=== PATIENT | female | born 1945 | race Caucasian/White ===

== ENCOUNTER 2017-09-14 17:05 | Inpatient (IN) | payer OTHER ==
[~2017-09-14] VITALS: Ht 170.2 cm; Wt 74.3 kg
[~2017-09-14 17:05] MED LIST: AMOXICILLIN500 M1 PO; ASPIR 8181 M1 PO; DIOVAN HCT 80-1 EACH PO; PRILOSEC20 MG PO
[2017-09-14 17:55] LABS: HEMATOCRIT 43.9 % (36.0-46.0); MCHC 33.7 G/DL (30.0-36.0); MCV 94.8 FL (83-99); PLATELET COUNT 314 K/uL (156-360); RBC DIS.WIDTH-CV 12.1 % (11.8-14.6); RBC DIS.WIDTH-SD 42.2 % (39-53); RED BLOOD COUNT 4.63 M/uL (3.80-5.20); WHITE BLOOD COUNT 13.1 K/uL (4.1-10.2)
[2017-09-14 18:08] LABS: CHLORIDE 107 mEq/L (99-109); SODIUM 142 mEq/L (136-147)
[2017-09-14 18:11] LABS: GLUCOSE 112 mg/dL (70-99)
[2017-09-14 18:14] LABS: ALKALINE PHOSPHATASE 236 IU/L (3-129); ANION GAP 9 MEQ/L (2-14); GFR ESTIMATE (CALCULATED) > 59 mL/min/; TOTAL BILIRUBIN 0.5 mg/dL (0.0-1.0)
[2017-09-14 18:15] LABS: UREA NITROGEN (BUN) 13 mg/dL (9-23)
[2017-09-14 18:43] LABS: LIPASE 27 U/L (1.0-51.0)
[2017-09-14 18:43] LABS: ADD MIUA? YES; BILIRUBIN NEGATIVE; BLOOD SMALL; COLOR YELLOW ((YELLOW)); GLUCOSE (STRIP) NEGATIVE; KETONES 20; LEUKOCYTES SMALL; NITRITE NEGATIVE; PROTEIN (STRIP) NEGATIVE; SPECIFIC GRAVITY 1.015 (1.000-1.030); UROBILINOGEN 0.2 MG/DL (0.2-1.0)
[2017-09-14 18:57] LABS: BACTERIA NONE SEEN /HPF; EPITHELIAL CELLS RARE /HPF; MUCUS TRACE /LPF; UCUL ADDED? YES
[2017-09-14 19:02] LABS: TROP-I INTERPRETATION NEGATIVE; TROPONIN-I < 0.01 ng/mL (0.0-0.30)
[2017-09-14] MEDS ORDERED: AMLODIPINE BES2.5 MG PO (20:00)
[2017-09-14] MEDS ORDERED: IBUPROFEN600 MG PO (20:00)
[2017-09-14] MEDS ORDERED: ATORVASTATIN CA20 MG PO (20:00)
[2017-09-14] MEDS ORDERED: MAGNESIUM400 M1 PO (20:00)
[2017-09-14] MEDS ORDERED: LOPRESSOR25 MG PO (20:00)
[2017-09-14 21:17] LABS: TROP-I INTERPRETATION NEGATIVE; TROPONIN-I < 0.01 ng/mL (0.0-0.30)
[2017-09-15] VITALS (7 sets, daily range): BP systolic 114–135; BP diastolic 56–81
[2017-09-15 07:44] LABS: HEMATOCRIT 41.3 % (36.0-46.0); MCH 30.9 PG (29.0-34.0); MCHC 32.4 G/DL (30.0-36.0); MCV 95.4 FL (83-99); PLATELET COUNT 288 K/uL (156-360); RBC DIS.WIDTH-SD 42.1 % (39-53); RED BLOOD COUNT 4.33 M/uL (3.80-5.20)
[2017-09-15 07:57] LABS: INTER. NORMALIZED RATIO 1.1; PROTHROMBIN TIME 12.6 SEC (10.2-12.9)
[2017-09-15 08:00] LABS: PTT 29.7 SEC (25-37)
[2017-09-15 08:09] LABS: ALKALINE PHOSPHATASE 186 IU/L (3-129); ANION GAP 7 MEQ/L (2-14); CHLORIDE 105 MEQ/L (99-109); GFR ESTIMATE (CALCULATED) > 59 mL/min/; GLUCOSE 109 mg/dL (70-99); POTASSIUM 3.8 MEQ/L (3.7-5.4); SAMPLE HEMOLYSIS CHECK 0; SAMPLE ICTERIC CHECK 0; SAMPLE LIPEMIA CHECK 0; SODIUM 142 MEQ/L (136-147); TOTAL BILIRUBIN 0.8 MG/DL (0.0-1.0); UREA NITROGEN (BUN) 10 mg/dL (9-23)
[2017-09-16 03:42] VITALS: BP 123/73
[2017-09-16 07:26] LABS: HEMATOCRIT 42.8 % (36.0-46.0); MCH 31.9 PG (29.0-34.0); MCHC 33.2 G/DL (30.0-36.0); MCV 96.2 FL (83-99); MEAN PLAT.VOLUME 10.1 uM^3 (9.5-12.4); PLATELET COUNT 288 K/uL (156-360); RBC DIS.WIDTH-CV 12.3 % (11.8-14.6); RBC DIS.WIDTH-SD 43.4 % (39-53); RED BLOOD COUNT 4.45 M/uL (3.80-5.20)
[2017-09-16 07:34] VITALS: BP 126/78
[2017-09-16 08:00] LABS: ANION GAP 11 MEQ/L (2-14); CHLORIDE 105 MEQ/L (99-109); GFR ESTIMATE (CALCULATED) > 59 mL/min/; GLUCOSE 102 mg/dL (70-99); POTASSIUM 3.9 MEQ/L (3.7-5.4); SAMPLE HEMOLYSIS CHECK 0; SAMPLE ICTERIC CHECK 0; SAMPLE LIPEMIA CHECK 0; SODIUM 143 MEQ/L (136-147); UREA NITROGEN (BUN) 12 mg/dL (9-23)
[2017-09-16 08:01] LABS: ALKALINE PHOSPHATASE 236 IU/L (3-129); TOTAL BILIRUBIN 1.1 MG/DL (0.0-1.0)
[2017-09-16 11:13] VITALS: BP 144/71
[2017-09-16 16:21] VITALS: BP 123/62
[2017-09-16 19:40] VITALS: BP 127/64
[2017-09-16 23:28] VITALS: BP 137/60
[2017-09-17 03:15] VITALS: BP 122/58
[2017-09-17 07:12] LABS: HEMATOCRIT 40.2 % (36.0-46.0); MCH 31.4 PG (29.0-34.0); MCV 95.7 FL (83-99); WHITE BLOOD COUNT 12.3 K/uL (4.1-10.2)
[2017-09-17 07:13] LABS: EOSINOPHIL (%) 0.3 % (0-5); IMMATURE GRANULOCYTE (%) 0.3 % (0.0-0.7); LYMPHOCYTE COUNT 2.2 K/uL (1.0-2.8); MCHC 32.8 G/DL (30.0-36.0); MEAN PLAT.VOLUME 9.5 uM^3 (9.5-12.4); MONOCYTE (%) 8.3 % (3-12); NEUTROPHIL (%) 73.4 % (45-76); PLATELET COUNT 306 K/uL (156-360); RBC DIS.WIDTH-SD 42.2 % (39-53)
[2017-09-17 07:15] VITALS: BP 148/73
[2017-09-17 07:44] LABS: ALKALINE PHOSPHATASE 194 IU/L (3-129); ANION GAP 10 MEQ/L (2-14); CHLORIDE 104 MEQ/L (99-109); GFR ESTIMATE (CALCULATED) > 59 mL/min/; GLUCOSE 120 mg/dL (70-99); SAMPLE HEMOLYSIS CHECK 0; SAMPLE ICTERIC CHECK 0; SAMPLE LIPEMIA CHECK 0; SODIUM 143 MEQ/L (136-147); UREA NITROGEN (BUN) 11 mg/dL (9-23)
[2017-09-17 07:45] LABS: TOTAL BILIRUBIN 0.7 MG/DL (0.0-1.0)
[2017-09-17] MEDS ORDERED: TRAMADOL HCL50 MG PO (10:47)
[2017-09-17] MEDS ORDERED: TYLENOL REGULA325 MG PO (10:51)
== END 2017-09-17 11:49 | disposition home or self-care (01) | DRG 419 ==
LOC: EME 17:05 → EDOF 23:07 → CANRESERV 23:11 → ENRESERV 23:11 → 2EAST 09-15 01:28
PROVIDERS: Internal Medicine; Nurse Practitioner Family; Physician Assistant Medical; Surgery
PROC: 0FT44ZZ Resection of Gallbladder, Percutaneous Endoscopic Approach (ICD-10-PCS; principal; 2017-09-16)
DX: K80.12 Calculus of gallbladder with acute and chronic cholecystitis without obstruction (principal); K21.9 Gastro-esophageal reflux disease without esophagitis; J44.9 Chronic obstructive pulmonary disease, unspecified; I71.4 Abdominal aortic aneurysm, without rupture; E78.5 Hyperlipidemia, unspecified; I25.5 Ischemic cardiomyopathy; I65.23 Occlusion and stenosis of bilateral carotid arteries; Z95.1 Presence of aortocoronary bypass graft; Z60.2 Problems related to living alone; E66.9 Obesity, unspecified; Z90.710 Acquired absence of both cervix and uterus; Z86.79 Personal history of other diseases of the circulatory system; Z79.82 Long term (current) use of aspirin; Z68.29 Body mass index [BMI] 29.0-29.9, adult; Z87.891 Personal history of nicotine dependence; I25.2 Old myocardial infarction; Z82.49 Family history of ischemic heart disease and other diseases of the circulatory system
CPT/HCPCS: 76705; 80053; 81003; 83690; 84484; 85025; 85027; 85610; 85730; 87040; 87070; 87075; 87086 GA; 87205; 88304; 93005; C1769; J0131; J0330; J0696; J1100; J1170; J1644; J2270; J2405; J2543; J2710; J3010; J7040; J7050